=== PATIENT | female | born 1970 | race Hispanic/Latino ===

== ENCOUNTER 2020-05-07 14:00 | Observation (INO) | payer OTHER ==
[2020-05-06 11:46] LABS: BASOPHILS % (AUTO) 0.5 % (0.0-5.0); EOSINOPHILS % (AUTO) 2.1 % (0.0-8.0); HEMATOCRIT 43.3 % (36-48); LYMPHOCYTES % (AUTO) 34.5 % (21.0-51.0); MEAN CORPUSCULAR HEMOGLOBIN 28.9 pg (27.0-33.0); MEAN CORPUSCULAR HGB CONC 33.7 g/dL (32.0-36.0); MEAN CORPUSCULAR VOLUME 85.7 fL (79-99); MONOCYTES % (AUTO) 8.2 % (3.0-13.0); PLATELET COUNT (AUTO) 198 K/uL (130-400); RED BLOOD CELL COUNT(AUTO) 5.05 MIL/uL (4.00-5.50); RED CELL DISTRIBUTION WIDTH 12.4 % (11.0-15.5); WHITE BLOOD COUNT (AUTO) 4.3 K/uL (4.8-10.8)
[2020-05-06 11:54] LABS: POTASSIUM 4.6 mmol/L (3.5-5.1)
[~2020-05-07] VITALS: Ht 172.7 cm; Wt 96.4 kg
[2020-05-13 09:56] VITALS: BP 136/78
[2020-05-13] MEDS ORDERED: METF-445 PO (11:29)
[2020-05-14] VITALS (24 sets, daily range): BP systolic 96–139; BP diastolic 56–81
[2020-05-14] MEDS: CEFAZOLIN SODIUM 1 GM VIAL IVP SCH ×4 (06:00→17:28)
[2020-05-14] MEDS ORDERED: SODIUM CHLORIDE 0.9% 1000ML 1,000 ML IV ONE (06:35)
[2020-05-14] MEDS ORDERED: THROMBIN-JMI 20000 UNIT KIT TP ONE (06:42)
[2020-05-14] MEDS ORDERED: DURAMORPH PF1 MG/ML 10ML AMP IV ONE (06:42)
[2020-05-14] MEDS ORDERED: CEFAZOLIN SODIUM 1 GM VIAL ONE (06:42)
[2020-05-14] MEDS ORDERED: DEXAMETHASONE SOD PHOSPHATE 10MG/ML 1ML VIAL ONE (07:15)
[2020-05-14] MEDS ORDERED: SUCCINYLCHOLINE CHLORIDE 20 MG/ML 10 ML VIAL ONE (07:15)
[2020-05-14] MEDS ORDERED: GLYCOPYRROLATE 1 MG/5 ML SYRINGE ONE (07:15)
[2020-05-14] MEDS: BUPIVACAINE/EPI/PF 0.25% 30ML VIAL IJ SCH ×2 (07:15→08:08)
[2020-05-14] MEDS ORDERED: LIDOCAINE PF 2% 5ML ABBOJECT ONE (07:15)
[2020-05-14] MEDS ORDERED: PROPOFOL 10 MG/ML 20ML VIAL IV ONE (07:16)
[2020-05-14] MEDS ORDERED: ONDANSETRON HCL 4 MG/2 ML VIAL ONE (07:16)
[2020-05-14] MEDS ORDERED: FENTANYL CITRATE PF 50 MCG/1 ML 2ML VIAL ONE ×2 (07:16→08:14)
[2020-05-14] MEDS ORDERED: MIDAZOLAM HCL 1 MG/ML 2ML VIAL ONE (07:16)
[2020-05-14] MEDS ORDERED: ROCURONIUM 10MG/1ML SYR 10 MG/ML ML ONE ×2 (07:16→08:13)
[2020-05-14] MEDS ORDERED: NEOSTIGMINE 5MG/5ML SYR IV ONE (07:16)
[2020-05-14] MEDS ORDERED: MEPERIDINE-PF 25 MG/ML SYG ONE (07:17)
[2020-05-14] MEDS ORDERED: EPHEDRINE SULFATE 50 MG/ML AMPULE ONE (08:01)
[2020-05-14] MEDS ORDERED: PHENYLEPHRINE HCL 10 MG/ML 1ML VIAL IV ONE (08:01)
[2020-05-14] MEDS ORDERED: KETOROLAC TROMETHAMINE 30MG/ML ONE (08:17)
[2020-05-14] MEDS ORDERED: HYDROCODONE/ACETAMINOPHEN 5/325 MG TAB PO PRN (09:45)
[2020-05-14] MEDS: DEXAMETHASONE SOD PHOSPHATE 4 MG/ML 1ML VIAL IVP SCH ×3 (09:45→20:44)
[2020-05-14] MEDS ORDERED: PROMETHAZINE HCL 25 MG/ML 1ML AMPULE IM PRN (09:45)
[2020-05-14] MEDS ORDERED: SODIUM CHLORIDE 0.9% 10 ML VIAL IVP PRN (09:45)
[2020-05-14] MEDS ORDERED: MORPHINE SULFATE 2 MG/ML 1ML SYG IVP PRN (09:45)
[2020-05-14] MEDS: LACTATED RINGERS 1000ML 1,000 ML IV SCH ×2 (11:16→20:45)
[2020-05-14] MEDS ORDERED: GLUCAGON 1MG KIT 1 MG ML IM PRN (11:30)
[2020-05-14] MEDS ORDERED: DEXTROSE 50%-WATER 50 ML DISP.SYRIN IV PRN (11:30)
[2020-05-14] MEDS: INSULIN HUMULIN R 100 UNIT/ML 3ML SQ SCH ×3 (12:06→20:49)
[2020-05-14] MEDS ORDERED: METFORMIN HCL 850 MG TABLET PO SCH (21:00)
--- NOTE | 2020-05-14 21:00 | NUR ---
PAIN Pt ambulating in the room,c/o of back pain.Medicated with [place].
--- NOTE | 2020-05-14 22:00 | NUR ---
MED EFFECT Pt asleep.
--- NOTE | 2020-05-14 23:39 | NUR ---
ACTIVITY Pt ambulated in the hallway,tolerated wel. Addendum: 05/14/20 at 2341 by SHEA BAKER RN RN Saline locked Iv,pt tolerating diet.
[2020-05-15 04:00] VITALS: BP 113/66
[2020-05-15] MEDS: DEXAMETHASONE SOD PHOSPHATE 4 MG/ML 1ML VIAL IVP SCH (04:16)
--- NOTE | 2020-05-15 04:55 | NUR ---
VALENTIN CATH REMOVED Explained to pt,balloon deflated.Valentin cath removed,carmel well. Addendum: 05/15/20 at 0457 by SHEA BAKER RN RN Amended: Links added.
[2020-05-15] MEDS: INSULIN HUMULIN R 100 UNIT/ML 3ML SQ SCH (05:42)
[2020-05-15 08:27] VITALS: BP 111/77
--- NOTE | 2020-05-15 11:30 | NUR ---
DISCHARGE INSTRUCTION PROVIDED TO PATIENT ,ALONG WITH SCRIPT. DRESSING CHANGED , INSTRUCTED TO KEEP CLEAN AND DRY
== END 2020-05-15 11:30 | disposition home or self-care (01) ==
LOC: EDSTATUS 14:00 → DAHIP 05-14 05:53 → 3BH 05-14 10:37
PROVIDERS: ADMIT Neurological Surgery; ATTEND Neurological Surgery
DX: M51.17 Intervertebral disc disorders with radiculopathy, lumbosacral region (principal); Z20.828 Contact with and (suspected) exposure to other viral communicable diseases; E78.5 Hyperlipidemia, unspecified; Z87.440 Personal history of urinary (tract) infections
CPT/HCPCS: 36415; 63047; 71045; 72020; 80051; 82948 ×5; 85025; 93005; 96361 ×2; 96372 ×2; 96374; 96375; 96376 ×2; A4215; A4221; A4223; A4344; A4510; A4600; A4649 ×2; A4663; G0378 ×25; J0330; J0690 ×3; J1100 ×4; J1815 ×2; J1885; J2001; J2175; J2250; J2274; J2370; J2405; J2704; J2710; J3010 ×2; J3490 ×3; J7030 ×2; J7120 ×2; U0003